=== PATIENT | male | born 1965 | race Caucasian/White ===

== ENCOUNTER → 2021-01-31 15:31 | Outpatient (CLI) | payer BC, SELFPAY ==
--- NOTE | ~2021-01-31 | MR_ITS ---
EXAMINATION: MR knee LT wo con DATE: 01/31/2021 16:55 INDICATION: Left knee pain. TECHNIQUE: Magnetic resonance imaging (MRI) of the left knee was performed without intravenous contra st. Sequences included axial PD-weighted FS FSE, coronal PD-weighted FSE and PD-weighted FS FSE, sagi ttal PD-weighted FSE, and sagittal T2-weighted FS FSE. COMPARISON: Left knee radiographs 01/21/2021 FINDINGS: Medial compartment: There is a radial tear of posterior horn of medial meniscus. There is cartilage surface irregularity of femoral condyle and tibial condyle. Lateral compartment: Lateral meniscus is normal. Lateral meniscus is normal. Patellofemoral compartment: There is shallow partial-thickness cartilage loss of patellar medial facet and median ridge with mild subchondral edema-like marrow signal intensity. There is deep partial thickness cartilage loss of me dial trochlea with mild subchondral edema-like marrow signal intensity. There is edema of suprapatell ar fat pad, which is nonspecific, but may be seen with impingement. Ligaments and tendons: The anterior and posterior cruciate ligaments are normal. Medial collateral ligament and lateral taryn ateral ligament complex are normal. There is mild patellar tendinopathy. Fluid: There is a small knee joint effusion. There is a small Hernandez's cyst. There is mild prepatellar and chong perficial infrapatellar bursitis. IMPRESSION: 1. Moderate chondrosis of patellofemoral compartment and mild chondrosis of medial compartment. 2. Tear of medial meniscus. 3. Small knee joint effusion. 4. Small Hernandez's cyst. Reviewed, dictated and finalized at location A. IMPRESSION: 1. Moderate chondrosis of patellofemoral compartment and mild chondrosis of med ial compartment. 2. Tear of medial meniscus. 3. Small knee joint effusion. 4. Small Hernandez's cyst.
== END ==
PROVIDERS: PCP Physician Assistant; Visit Provider Physician Assistant Surgical
DX: M11.262 Other chondrocalcinosis, left knee (principal); S83.222A Peripheral tear of medial meniscus, current injury, left knee, initial encounter; M25.462 Effusion, left knee; M71.22 Synovial cyst of popliteal space [Baker], left knee; X58.XXXA Exposure to other specified factors, initial encounter
CPT/HCPCS: 73721

== ENCOUNTER → 2023-01-09 13:59 | Outpatient (CLI) | payer BC, SELFPAY ==
--- NOTE | ~2023-01-09 | CT_ITS ---
EXAMINATION: CT abdomen pelvis w con INDICATION: Unspecified abdominal pain TECHNIQUE: Computed tomographic images of the abdomen and pelvis were obtained after the administrati on of 100 cc of Omnipaque 350 intravenous contrast. The dose-length product (DLP) was 1101.46 mGy-cm. Automated exposure control and iterative reconstruction technique were employed. COMPARISON: 02/05/2010 FINDINGS: Minimal dependent atelectasis is present in the lung bases. The heart size is normal. The l iver, spleen, pancreas, gallbladder, and adrenal glands are normal. The kidneys are unremarkable. The re is a 3 mm stone of the proximal right ureter without significant hydronephrosis. No pathologically enlarged abdominal or pelvic lymph nodes are identified. Colonic diverticulosis is present without e vidence of diverticulitis. There is chronic sclerosis in the right posterior iliac spine without sign ificant change there is moderate lower lumbar spondylosis.. IMPRESSION: 1. 3 mm stone of the proximal right ureter without significant hydronephrosis. Reviewed, dictated and finalized at location B.
== END ==
PROVIDERS: PCP Physician Assistant; Visit Provider Physician Assistant
DX: R10.9 Unspecified abdominal pain (principal); N20.1 Calculus of ureter
CPT/HCPCS: 74177; Q9967

== ENCOUNTER → 2023-03-04 08:40 | Outpatient (CLI) | payer BC, SELFPAY ==
--- NOTE | ~2023-03-04 | MR_ITS ---
EXAMINATION: MR pelvis wo/w con DATE: 03/04/2023 09:29 INDICATION: Right hip pain. Sclerotic lesion in right ilium. TECHNIQUE: Magnetic resonance imaging (MRI) of the pelvis was performed without and with 20 mL MultiH ance intravenous contrast. COMPARISON: CT abdomen and pelvis 01/09/2023, 02/05/2010 FINDINGS: There are no dilated loops of bowel. There is a right inguinal hernia containing fat. There is a 2.8 x 1.2 cm right external iliac lymph node. There is no free intraperitoneal fluid. There is diverticul osis of the colon without evidence of diverticulitis. The iliopsoas tendons are normal. There is mild tendinopathy of the gluteus minimus tendons bilaterally. The gluteus medius tendons are normal. Ther e is mild tendinopathy of the hamstring origins bilaterally. There is sclerosis in posterior right il ium, stable from 02/05/2010, likely benign. There is mild osteoarthritis of the hips. IMPRESSION: 1. Mild osteoarthritis of the hips. 2. Small right inguinal hernia containing fat. 3. Chronic benign sclerotic lesion in right ilium. 4. Mildly enlarged right external iliac lymph node, likely reactive. Reviewed, dictated and finalized at location A.
== END ==
PROVIDERS: Visit Provider Physician Assistant
DX: M16.0 Bilateral primary osteoarthritis of hip (principal); K40.90 Unilateral inguinal hernia, without obstruction or gangrene, not specified as recurrent
CPT/HCPCS: 72197; A9577

== ENCOUNTER → 2023-04-20 15:51 | Outpatient (CLI) | payer BC, SELFPAY ==
--- NOTE | ~2023-04-20 | XR_ITS ---
EXAMINATION: XR shoulder LT min 2V DATE: 04/20/2023 16:55 INDICATION: Left shoulder pain TECHNIQUE: AP internally and externally rotated, AP oblique externally rotated and axillary views of the left shoulder were obtained. COMPARISON: None FINDINGS: Normal alignment. No fracture. Glenohumeral joint is normal. Mild left acromioclavicular osteoarthri tis. Soft tissues are unremarkable. IMPRESSION: Mild left acromioclavicular osteoarthritis. No acute osseous abnormality. Reviewed, dictated and finalized at location A. C [employer]A [employer]
== END ==
PROVIDERS: PCP Physician Assistant; Visit Provider Physician Assistant
DX: M19.012 Primary osteoarthritis, left shoulder (principal)
CPT/HCPCS: 73030

== ENCOUNTER 2023-06-01 13:13 | Outpatient (CLI) | payer BC, SELFPAY ==
--- NOTE | ~2023-06-01 | XR_ITS ---
XR shoulder LT min 2V DATE: 06/01/2023 13:36 INDICATION: Anterolateral left shoulder pain TECHNIQUE: 4 views COMPARISON: 04/20/2023 left shoulder FINDINGS: Normal alignment at the left acromioclavicular and glenohumeral joints. No fracture or disl ocation, periosteal reaction or bone destruction or abnormal soft tissue calcification. IMPRESSION: Negative Reviewed, dictated and finalized at location B. [employer] IMPRESSION: Negative
== END 2023-06-01 13:14 | disposition home or self-care (01) ==
LOC: ANHIMG 13:16
PROVIDERS: PCP Physician Assistant; Visit Provider Physician Assistant
DX: M25.512 Pain in left shoulder (principal)
CPT/HCPCS: 73030

== ENCOUNTER → 2023-06-25 08:30 | Outpatient (CLI) | payer BC, SELFPAY ==
--- NOTE | ~2023-06-25 | MR_ITS ---
MRI of the left shoulder Technique: Axial proton-density fat-sat images, coronal proton density fat-sat and T2 fat-sat images, and sagittal T1-weighted and T2 fat-sat images were acquired. Clinical History: Pain Findings: There is minimal AC joint degenerative change. Coracoclavicular, coracoacromial, and coraco humeral ligaments are intact. There is probable tiny rim rent articular surface partial tear at the distal supraspinatus tendon ins ertion. No high-grade partial or full-thickness tear of the supraspinatus or infraspinatus tendons is seen. There is moderate tendinosis of these tendons. Subscapularis tendon is intact, with mild tendi nosis. Tendon of long head of the biceps is intact. There is superior labral tear. No definite anterior or posterior extension. Inferior glenohumeral ligament is intact. No degenerative change or effusion of the glenohumeral join t. There is minimal fluid within the subacromial/subdeltoid bursa. No muscle atrophy or edema. Impression: Probable tiny low-grade rim rent articular surface partial tear of the subscapularis tendon insertion . No high-grade partial or full-thickness rotator cuff tear seen. Rotator cuff tendinosis, as above. Superior labral tear without definite anterior or posterior extension. Reviewed, dictated and finalized at location . [employer] Impression: Probable tiny low-grade rim rent articular surface partial tear of the subscapu emilie tendon insertion. No high-grade partial or full-thickness rotator cuff te ar seen. Rotator cuff tendinosis, as above. Superior labral tear without definite anterior or posterior extension.
== END ==
PROVIDERS: PCP Internal Medicine; Visit Provider Internal Medicine
DX: S43.432A Superior glenoid labrum lesion of left shoulder, initial encounter (principal); X58.XXXA Exposure to other specified factors, initial encounter
CPT/HCPCS: 73221

== ENCOUNTER 2023-09-03 08:17 | Outpatient (CLI) | payer BC, SELFPAY ==
--- NOTE | ~2023-09-03 | MR_ITS ---
EXAMINATION: MR lumbar spine wo con DATE: 09/03/2023 09:07 INDICATION: Lumbar radiculopathy with low back pain, left leg pain and left foot numbness. TECHNIQUE: Magnetic resonance imaging (MRI) of the lumbar spine was performed without intravenous con trast. Sequences included sagittal T2-weighted FSE, sagittal T2-weighted FS FSE, sagittal T1-weighted FSE, and axial T2-weighted FSE. COMPARISON: None FINDINGS: 5 degrees lumbar dextrocurvature. 1 mm retrolisthesis L4 on L5 and 2 mm retrolisthesis L5 on S1. Mini mal likely physiologic anterior wedging at T12. Lumbar vertebral body heights are normal. Normal mar row signal. Mild disc desiccation and mild disc height loss at L2-L3 through L5-S1. There are annular fissures at L2-L3 through L5-S1. The conus medullaris terminates at L1. There is normal signal in th e caudal spinal cord. Paravertebral soft tissues are unremarkable. The following disc levels are spec ifically discussed: T12-L1: The disc does not extend beyond the endplate margin. There is mild right and minimal left fac et joint osteoarthritis. There is no neural foraminal stenosis. There is no central canal stenosis. L1-L2: The disc does not extend beyond the endplate margin. There is mild bilateral facet joint osteo arthritis. There is no neural foraminal stenosis. There is no central canal stenosis. L2-L3: There is mild left and right sided disc protrusions beginning posteriorly at the bilateral for aminal zones. This is more prominent on the left where there is an associated annular fissure. There is mild bilateral facet joint osteoarthritis. There is mild bilateral neural foraminal stenosis. Ther e is no central canal stenosis. L3-L4: Disc is minimally bulging with annular fissure. There is mild bilateral facet joint osteoarthr itis. There is mild bilateral neural foraminal stenosis. There is minimal central canal stenosis. L4-L5: Disc is mildly bulging with annular fissure and central disc extrusion which extends 1.5 cm in feriorly as well as laterally towards the cephalad aspect of the left L5-S1 neural foramen resulting in narrowing of the left lateral recess exerting mass effect upon the traversing left L5 nerve root. There is mild left and moderate right facet joint osteoarthritis. There is mild to moderate bilateral neural foraminal stenosis. There is mild central canal stenosis. L5-S1: Disc is bulging with annular fissure. There is mild left and moderate right facet joint osteoa rthritis. There is mild left and moderate right neural foraminal stenosis. There is mild narrowing of the right lateral recess with otherwise no significant central canal stenosis. IMPRESSION: 1. Mild lumbar spondylosis most notable for annular fissure and large disc extrusion at L4-L5 which n arrows the left lateral recess exerting mild mass effect upon the traversing left L5 nerve root. Tamiko elate clinically for muscle weakness of great toe extension and sensory change of the medial foot and great toe. Reviewed, dictated and finalized at location B. IMPRESSION: 1. Mild lumbar spondylosis most notable for annular fissure and large disc extr usion at L4-L5 which narrows the left lateral recess exerting mild mass effect upon the traversing left L5 nerve root. Correlate clinically for muscle weaknes s of great toe extension and sensory change of the medial foot and great toe.
== END 2023-09-03 08:18 ==
LOC: GOSHIMG 08:18
PROVIDERS: PCP Internal Medicine; Visit Provider Internal Medicine
DX: M47.26 Other spondylosis with radiculopathy, lumbar region (principal)
CPT/HCPCS: 72148